=== PATIENT | male | born 1935 | race Caucasian/White ===

== ENCOUNTER → 2018-02-14 | Outpatient (CLI) | payer MEDICARE ==
[~2018-02-14] MED LIST: AMLO5CAP PO; AMLO5TAB2 PO; ASPI325T PO; ATEN-100 PO; ATOR40TA16 PO; CHOL5000 PO; ECASA81 PO; EZET10 PO; FLUT50SP EACH NARE; LATA.005%O EACH EYE; LIPI20TA PO; METF500T PO; METO50TA PO; OMEP20TA93 PO; PRIL20TA2 PO; RANO500 PO; VITA100021 SL; ZETI10TA5 PO
[2018-02-14 11:25] LABS: HEMOGLOBIN 14.2 GM/DL (13.0-17.0); MEAN CELL VOLUME 99.5 FL (80.0-100.0); MEAN CORPUSCULAR HEMOGLOBIN 33.7 PG (27.0-34.0); MEAN CORPUSCULAR HGB CONC 33.9 % (32.0-36.0); MEAN PLATELET VOLUME 9.5 FL (7.0-11.0); PLATELET COUNT 169 TH/MM3 (150-450); RED BLOOD COUNT 4.22 MIL/MM3 (4.50-5.90); RED CELL DISTRIBUTION WIDTH 13.2 % (11.6-17.2)
[2018-02-14 11:29] LABS: INTERNATIONAL NORMALIZED RATIO 1.1 RATIO
[2018-02-14 11:48] LABS: BICARBONATE 28.9 MEQ/L (21.0-32.0); CALCIUM 9.3 MG/DL (8.5-10.1); CREATININE 0.81 MG/DL (0.60-1.30)
== END ==
LOC: CPRE 10:44
PROVIDERS: ATTEND Surgery
DX: Z01.812 Encounter for preprocedural laboratory examination (principal); I71.4 Abdominal aortic aneurysm, without rupture
CPT/HCPCS: 36415; 80048; 85027; 85610

== ENCOUNTER 2018-02-21 05:36 | Inpatient (IN) | payer MEDICARE ==
[2018-02-21] VITALS (11 sets, daily range): BP systolic 118–137; BP diastolic 65–80; PULSE 55–84; RESP 17–18; TEMP 97.6–98; O2SAT 96–97
[~2018-02-21] VITALS: Ht 177.8 cm; Wt 67.0 kg
[~2018-02-21 05:36] MED LIST changes: -AMLO5CAP PO; -ASPI325T PO; -ATEN-100 PO; -LIPI20TA PO; -PRIL20TA2 PO; -ZETI10TA5 PO
[2018-02-21] MEDS ORDERED: METOPROLOL TARTRATE 25 MG TAB PO PRN (06:30)
[2018-02-21] MEDS ORDERED: POVIDONE IODINE 5% (ANTISEPSIS KIT) 4 APPLICATIONS EACH NARE PRN (06:30)
[2018-02-21] MEDS ORDERED: CHLORHEXIDINE GLUCONATE 2 % 1 PACK (2 CLOTHS) TOPICAL PRN (06:30)
[2018-02-21] MEDS ORDERED: SODIUM CHLORID 0.9% 500 ML IV PRN (06:30)
[2018-02-21] MEDS ORDERED: LACTATED RINGER'S 1000 ML IV PRN (06:30)
[2018-02-21] MEDS ORDERED: PROTAMINE SULFATE 50 MG/5 ML VIAL ONE (06:54)
[2018-02-21] MEDS ORDERED: HEPARIN-NS/PF INJ 500 ML ONE (06:54)
[2018-02-21] MEDS ORDERED: HEPARIN SODIUM - IV 10,000 UNITS/10 ML VIAL ONE (06:54)
[2018-02-21] MEDS ORDERED: BUPIVACAINE HCL PF 0.5% 10 ML VIAL ONE (06:54)
[2018-02-21] MEDS ORDERED: VANCOMYCIN HCL 1000 MG VIAL ONE (06:54)
[2018-02-21] MEDS ORDERED: IOHEXOL 300 INJ 50 ML IV ONE (07:18)
--- NOTE | 2018-02-21 07:22 | PD.VS.PN ---
Pre-operative Note Pre-operative diagnosis: Infrarenal aortic HARESH Planned procedure: EVAR Interval History: Pt has been feeling well; no pain and no change in health that would preclude OR. Labs: Hct 42 plt 169 cr 0.8 INR 1.1 Blood: T&S Imaging: CTA reviewed Orders: NPO vanc 1g IV OCTOR Post-operative destination: PACU then CPCU Operative site marked: No (bilateral groin access) Consent: Informed consent has been obtained from Sarkis Oswald. I have explained the procedure in detail and discussed the risks, benefits, and potential complications. All questions have been answered. Patient contact information: ([place]) will be here at noon Kristopher Castañeda MD February 21, 2018 07:22
[2018-02-21] MEDS ORDERED: fentaNYL CITRATE 250 MCG/5 ML AMP ONE (07:27)
[2018-02-21] MEDS: LACTATED RINGER'S 1000 ML INJ 1,000 ML IV SCH (09:17)
--- NOTE | 2018-02-21 09:17 | HHI.PR ---
cc: Kristopher Castañeda MD; Oscar Edmond MD Immediate Post Op Note Procedure Date: February 21, 2018 Pre Op Diagnosis: Penetrating infrarenal aortic ulcer Post Op Diagnosis: Penetrating infrarenal aortic ulcer Surgeon: Kristopher Castañeda Chief Warden(s): Duane Rollins Procedure: 1. EVAR 2. R SAND DIGGER Perclose (17F) 3. L SAND DIGGER Angioseal (6F) Findings: successful deployment of endograft and exclusion of ulceration Complications: none Specimen(s) removed: none Estimated blood loss: 75mL Anesthesia: General Drains: None Fluids: 1000mL IVF Urinary Output (mLs): 100 Patient to: PACU Patient Condition: Good Implant/Devices: SEE IMPLANT LOG (if applicable) Date/Time of Procedure: SEE SURGICAL CARE RECORD Kristopher Castañeda MD February 21, 2018 09:17
[2018-02-21] MEDS ORDERED: MAGNESIUM HYDROXIDE SUSP 30 ML CUP PO PRN (09:30)
[2018-02-21] MEDS ORDERED: SENNOSIDES 8.6 MG TAB PO PRN (09:30)
[2018-02-21] MEDS ORDERED: HYDROmorphone HCL 2 MG TAB PO PRN (09:30)
[2018-02-21] MEDS ORDERED: BISACODYL 10 MG SUPP RECTAL PRN (09:30)
[2018-02-21] MEDS ORDERED: LACTULOSE SYRUP 20 GM/30 ML CUP PO PRN (09:30)
[2018-02-21] MEDS ORDERED: DO NOT ADM ANY ANTICOAGULANT DRUGS PRN (09:32)
[2018-02-21] MEDS ORDERED: GLUCAGON 1 MG/ML VIAL OTHER PRN (11:45)
[2018-02-21] MEDS ORDERED: DEXTROSE 50% IN WATER 50 ML VIAL(D50) IV PUSH PRN (11:45)
[2018-02-21] MEDS ORDERED: LIDOCAINE HCL 1% PF 5 ML SYRINGE OTHER ONE (12:00)
[2018-02-21] MEDS ORDERED: ONDANSETRON HCL 4 MG/2 ML VIAL IV ONE (12:00)
[2018-02-21] MEDS ORDERED: PROPOFOL 200 MG/20 ML AMP IV ONE (12:00)
[2018-02-21] MEDS ORDERED: PHENYLEPH/NS 1000 MCG/10 ML SYR IV ONE (12:00)
[2018-02-21] MEDS ORDERED: DEXAMETHASONE SOD PHOS 4 MG/ML VIAL IV ONE (12:00)
[2018-02-21] MEDS ORDERED: GLYCOPYRROLATE 1 MG/5 ML SYRINGE IV PUSH ONE (12:00)
[2018-02-21] MEDS: INSULIN NovoLIN REGULAR SUPPLEMENTAL SCALE SQ SCH ×3 (12:00→21:00)
[2018-02-21] MEDS ORDERED: NEOSTIGMINE 5 MG/5 ML SYRINGE IV PUSH ONE (12:00)
[2018-02-21] MEDS ORDERED: ROCURONIUM INJ 50 MG/5 ML SYRINGE IV PUSH ONE (12:00)
[2018-02-21] MEDS ORDERED: IOHEXOL 300 MG/ML 100 ML BTL (for Rad CT) IVCONTRAST ONE (12:00)
[2018-02-21] MEDS ORDERED: metFORMIN HCL 500 MG TAB PO SCH (18:00)
[2018-02-21] MEDS ORDERED: ATORVASTATIN 40 MG TAB PO SCH (21:00)
[2018-02-21] MEDS: CHOLECALCIFEROL (VIT D3) 5000 UNIT CAP PO SCH (21:00)
[2018-02-21] MEDS ORDERED: LATANOPROST 0.005% OPHT SOLN 2.5 ML BTL EACH EYE SCH (21:00)
[2018-02-21] MEDS: FAMOTIDINE 20 MG TAB PO SCH (21:00)
--- NOTE | 2018-02-21 21:54 | MP ---
cc: Kristopher Castañeda MD, Robert J MD Swady, DATE OF OPERATION: 02/21/2018 PREOPERATIVE DIAGNOSIS: Infrarenal penetrating aortic ulcer. POSTOPERATIVE DIAGNOSIS: Infrarenal penetrating aortic ulcer. PROCEDURES: 1. Endovascular aortic exclusion. 2. Right common femoral artery Perclose (17-Scottish). 3. Left common femoral artery Angio-Seal (6-Scottish) ATTENDING SURGEON: Kristopher Castañeda MD. SURGEON: Kristopher Snow MD ANESTHESIA: General. INDICATIONS: Mr. Oswald is an 82-year-old gentleman who has an infrarenal penetrating aortic ulcer. After a thorough discussion was had with the patient about the risks and benefits, he was offered elective endovascular repair. DESCRIPTION OF PROCEDURE: Informed consent was obtained from the patient, he was taken to the operating room and laid supine on the operating table. An appropriate timeout was taken to ensure the patient's identity, operative site and planned procedure. A gram of vancomycin was initiated prior to skin incision. Will be discontinued after a single preoperative dose. Vancomycin was chosen because of the patient's PENICILLIN ALLERGY. Everyone in the room agreed with timeout and we proceeded. He was prepped from his nipples to the knees. A 21-gauge micropuncture needle was used to access both common femoral arteries. This was exchanged using Seldinger technique for a micropuncture sheath through which a 6-Scottish sheath was placed in both common femoral arteries on the right hand side. The 6-Scottish sheath was removed and 2 Perclose Pro Emmett sutures were inserted and tagged but not tied down. This will be used later. An 8-Scottish sheath was introduced on the right hand side. The patient was systemically heparinized and throughout the remainder of the case the ACT was kept greater than 250. Storq wire was advanced to the proximal descending thoracic aorta and the snare catheter was placed up the left hand side and on the right hand side a catheter was placed and the Storq was exchanged for a Lunderquist. The catheter and 8-Scottish sheath were removed. Beti dilator was used to dilate up the skin and subcutaneous tract and arteriotomy and the main device sheath, which was a 17-Scottish sheath, was placed through the right common femoral arteriotomy. The device was inserted through the sheath. The device was an Endologix 22 x 70/16 x 30 device. It was advanced up to the aorta and the contralateral limb wire was then advanced, and it was snared from the left hand side and pulled down. By pulling down, we confirmed there was no wire wrap and the device was seated on the aortic bifurcation. The device was deployed without difficulty and a pigtail catheter was placed up the left hand side to the middle of the device and interval angiography was performed to locate the renal arteries. The delivery system was removed and the proximal stent, which was a 2.5 x 75, was then introduced and inserted and deployed immediately caudal to the renal arteries. The overlap was sufficient and a Coda balloon was used to balloon the proximal and distal end as well as the gap junction. The completion angiogram showed excellent result with successful exclusion of the aneurysm sac and maintenance of perfusion of both limbs. There were palpable pulses in the left hand/foot and in the right groin. The wire catheter and sheath were removed. Perclose were tied down. Hemostasis was achieved in the groin. Left groin was closed with Angio-Seal. There were no complications. I was present and scrubbed and performed the entire procedure. MD SYDNEY Lozada/ , 08:47 PM , 09:53 PM
[2018-02-21] MEDS: DOCUSATE SODIUM 50 MG/SENNA 8.6 MG TAB PO SCH (22:03)
[2018-02-21] MEDS: METOPROLOL TARTRATE 50 MG TAB PO SCH (22:03)
[2018-02-21] MEDS: RANOLAZINE 500 MG EXTENDED RELEASE TAB PO SCH (22:04)
[2018-02-22] VITALS (12 sets, daily range): BP systolic 134–141; BP diastolic 68–70; PULSE 52–84; RESP 16–19; TEMP 97.7–97.9; O2SAT 94–99
[2018-02-22 04:25] LABS: HEMATOCRIT 34.9 % (39.0-51.0); HEMOGLOBIN 12.1 GM/DL (13.0-17.0); MEAN CELL VOLUME 98.1 FL (80.0-100.0); MEAN CORPUSCULAR HGB CONC 34.6 % (32.0-36.0); MEAN PLATELET VOLUME 9.9 FL (7.0-11.0); PLATELET COUNT 151 TH/MM3 (150-450); RED BLOOD COUNT 3.56 MIL/MM3 (4.50-5.90); WHITE BLOOD COUNT 9.3 TH/MM3 (4.0-11.0)
[2018-02-22 04:46] LABS: BICARBONATE 25.2 MEQ/L (21.0-32.0); CALCIUM 8.5 MG/DL (8.5-10.1); CREATININE 0.65 MG/DL (0.60-1.30)
[2018-02-22] MEDS: INSULIN NovoLIN REGULAR SUPPLEMENTAL SCALE SQ SCH (07:13)
[2018-02-22] MEDS ORDERED: PERC5TAB12 PO (07:33)
--- NOTE | 2018-02-22 07:40 | PD.VS.PN ---
Subjective POD #: 1 Procedure(s): EVAR Subjective/Hospital Course looks great this morning. had urinary retention over night but pt has history of self-cathing at home no abdominal or back pain. groins ok Objective Vitals/I&O Date Time Temp Pulse Resp B/P (MAP) Pulse Ox O2 Delivery O2 Flow Rate FiO2 02/22/18 06:14 68 02/22/18 05:20 59 02/22/18 04:29 57 02/22/18 03:18 60 02/22/18 03:18 97.9 72 19 141/70 (93) 94 02/22/18 02:00 61 02/22/18 01:28 57 02/22/18 00:10 54 02/21/18 23:30 70 02/21/18 23:30 98.0 84 17 131/80 (97) 96 02/21/18 22:14 78 02/21/18 21:30 80 02/21/18 20:00 66 02/21/18 19:30 61 02/21/18 19:30 97.7 59 18 137/65 (89) 97 02/21/18 18:09 55 02/21/18 17:09 80 02/21/18 16:00 66 02/21/18 15:08 97.6 73 18 118/72 (87) 96 02/21/18 15:08 66 02/21/18 14:16 75 02/21/18 13:20 69 02/21/18 11:45 97.3 58 20 118/55 (76) 98 Nasal Cannula 2 02/21/18 11:30 58 20 118/55 (76) 98 Nasal Cannula 2 02/21/18 10:30 56 20 130/63 (85) 98 Nasal Cannula 2 Arterial Line 02/21/18 10:15 54 20 128/61 (83) 98 Nasal Cannula 2 Arterial Line 02/21/18 10:00 55 20 132/64 (86) 99 Nasal Cannula 2 Arterial Line 02/21/18 09:45 60 20 122/58 (79) 98 Nasal Cannula 2 134/56 (82) 02/21/18 09:33 96.0 64 20 141/64 (89) 99 134/55 (81) 02/22/18 02/22/18 02/22/18 07:00 15:00 23:00 Intake Total 480 ml Output Total 950 ml Balance -470 ml Exam: no abdominal tenderness B groin access sites ok Pulses: palpable femoral pulses bilaterally Laboratory Laboratory Tests Test 02/22/18 03:42 02/22/18 03:43 Blood Urea Nitrogen 16 Creatinine 0.65 Random Glucose 124 Calcium Level 8.5 Sodium Level 139 Potassium Level 3.9 Chloride Level 105 Carbon Dioxide Level 25.2 Anion Gap 9 Estimat Glomerular Filtration Rate 118 White Blood Count 9.3 Red Blood Count 3.56 Hemoglobin 12.1 Hematocrit 34.9 Mean Corpuscular Volume 98.1 Mean Corpuscular Hemoglobin 34.0 Mean Corpuscular Hemoglobin Concent 34.6 Red Cell Distribution Width 13.0 Platelet Count 151 Mean Platelet Volume 9.9 Assessment and Plan Plan POD#1 s/p EVAR for infrarenal HARESH Looks great plan d/c today; he will self-cath at home per his routine. f/u 1m with CTA A/P Discharge Planning today Kristopher Castañeda MD Feb 22, 2018 07:39
--- NOTE | 2018-02-22 08:07 | PD.VS.DC ---
Discharge Summary Admission Date: February 21, 2018 at 05:36 Discharge Date: Feb 22, 2018 Admission Diagnosis: (1) H/O endovascular stent graft for abdominal aortic aneurysm Discharge Diagnosis: (1) Penetrating ulcer of aorta ICD Codes: I71.9 - Aortic aneurysm of unspecified site, without rupture Brief History from admission 82/M w/ a hx of an Infrarenal aortic HARESH Procedure(s): EVAR Significant Findings R/L groin s/nt w/o hematoma or swelling Pt w/o abdominal/back pain Pt CTA RRR Abdomen s/nt Laboratory Tests Test 02/22/18 03:42 02/22/18 03:43 Random Glucose 124 MG/DL (74-106) Red Blood Count 3.56 MIL/MM3 (4.50-5.90) Hemoglobin 12.1 GM/DL (13.0-17.0) Hematocrit 34.9 % (39.0-51.0) Hospital Course: 82/M w/ a hx of an Infrarenal aortic penetrating infrarenal aortic ulcer Pt S/P EVAR POD 1 Pt w/o c/o abdominal/back pain Successful EVAR Pt noted to have urinary retention, HX of, Pt reported he self cath's Pt clear for D/C Arranged out pt f/u in 1M with a surveillance CTA A/P Allergies Coded Allergies Type Severity Reaction Last Updated Verified penicillin G Allergy Severe Rash 02/21/18 No 02/20/18 02/20/18 02/21/18 02/21/18 02/22/18 02/22/18 06:00 18:00 06:00 18:00 06:00 18:00 Intake Total 1810 ml 480 ml Output Total 835 ml 950 ml Balance 975 ml -470 ml Intake Oral 600 ml 480 ml IV Total 210 ml Other 1000 ml Output Urine Total 760 ml 950 ml Estimated Blood Loss 75 ml Bladder Scan Volume Amount 100 ml 798 ml # Bowel Movements 0 0 Laboratory Tests Test 02/22/18 03:42 02/22/18 03:43 Blood Urea Nitrogen 16 MG/DL Creatinine 0.65 MG/DL Random Glucose 124 MG/DL Calcium Level 8.5 MG/DL Sodium Level 139 MEQ/L Potassium Level 3.9 MEQ/L Chloride Level 105 MEQ/L Carbon Dioxide Level 25.2 MEQ/L Anion Gap 9 MEQ/L Estimat Glomerular Filtration Rate 118 ML/MIN White Blood Count 9.3 TH/MM3 Red Blood Count 3.56 MIL/MM3 Hemoglobin 12.1 GM/DL Hematocrit 34.9 % Mean Corpuscular Volume 98.1 FL Mean Corpuscular Hemoglobin 34.0 PG Mean Corpuscular Hemoglobin Concent 34.6 % Red Cell Distribution Width 13.0 % Platelet Count 151 TH/MM3 Mean Platelet Volume 9.9 FL Orders Procedure Category Date Status Time Type And Screen BBK 02/21/18 Complete 06:22 Lactated Ringer's MED 02/21/18 Complete 1000 Ml Inj (Lr 1000 M 06:30 Sodium Chlorid 0.9% MED 02/21/18 Complete 500 Ml Inj (Ns 500 M 06:30 Metoprolol Tartrate MED 02/21/18 In Process (Lopressor) 06:30 Povidone Iod 5% MED 02/21/18 In Process Antisepsis Kit 06:30 Chlorhexidine 2% MED 02/21/18 In Process Cloth (Chlorhexidine 06:30 Protamine Sulfate Inj MED 02/21/18 Complete (Protamine Sulfate 06:54 Heparin Inj (Heparin MED 02/21/18 Complete Inj) 06:54 Bupivacaine Pf 0.5% MED 02/21/18 Complete Inj (Marcaine Pf 0.5 06:54 Vancomycin Inj MED 02/21/18 Complete (Vancomycin Inj) 06:54 Heparin-Ns/Pf Inj MED 02/21/18 Complete (Heparin-Ns/Pf Inj) 06:54 Iohexol 300 Inj MED 02/21/18 Complete (Omnipaque 300 Inj) 07:18 Fentanyl Inj MED 02/21/18 Complete (Fentanyl Inj) 07:27 Am Admit Pre Op Care [facility] 02/21/18 Complete Endovascular Cath CATH 02/21/18 Complete Urinary Catheter DANNY 02/21/18 Complete Management 08:36 Remove Urinary DANNY 02/21/18 In Process Catheter 15:00 ^ Other Nursing Orders DANNY 02/21/18 In Process 09:17 Admit To Inpatient ADMITTING 02/21/18 Transmitted Code Status CODE 02/21/18 Transmitted 09:17 Vital Signs (Adult) DANNY 02/21/18 Complete 09:17 Glassware Selector / DANNY 02/21/18 In Process Telemetry 09:17 Activity Oob Ad Marlen DANNY 02/22/18 In Process 06:00 Activity Bed Rest DANNY 02/21/18 In Process 09:17 Precautions DANNY 02/21/18 In Process 09:17 Diet Heart Healthy DIET 02/21/18 Transmitted Breakfast Basic Metabolic Panel LAB 02/22/18 Complete (Bmp) 06:00 Cbc No Diff, Includes LAB 02/22/18 Complete Plts 06:00 Lactated Ringer's MED 02/21/18 In Process 1000 Ml Inj (Lr 1000 M 09:17 Aspirin Chew (Aspirin MED 02/22/18 In Process Chew) 09:00 Famotidine (Pepcid) MED 02/21/18 In Process 21:00 Oxycodone (Roxicodone) MED 02/21/18 In Process 09:30 Hydromorphone MED 02/21/18 In Process (Dilaudid) 09:30 Scd Bilateral/Knee DANNY 02/21/18 In Process High 09:17 Docusate Sodium-Senna MED 02/21/18 In Process (Lisa-Colace) 21:00 Magnesium Hydroxide MED 02/21/18 In Process Liq (Milk Of Magnesi 09:30 Sennosides (Senokot) MED 02/21/18 In Process 09:30 Bisacodyl Supp MED 02/21/18 In Process (Dulcolax Supp) 09:30 Lactulose Liq MED 02/21/18 In Process (Lactulose Liq) 09:30 Inpatient ADMITTING 02/21/18 Transmitted Certification Amlodipine (Norvasc) MED 02/22/18 In Process 09:00 Atorvastatin (Lipitor) MED 02/21/18 In Process 21:00 Cholecalciferol MED 02/21/18 In Process (Vitamin D3) 21:00 Ezetimibe (Zetia) MED 02/22/18 In Process 09:00 Latanoprost 0.005% MED 02/21/18 In Process Opth Soln (Xalatan 0. 21:00 Metformin (Glucophage) MED 02/21/18 In Process 18:00 Metoprolol Tartrate MED 02/21/18 In Process (Lopressor) 21:00 Ranolazine Sr (Ranexa) MED 02/21/18 In Process 21:00 Pantoprazole MED 02/22/18 In Process (Protonix) 09:00 Enoxaparin Inj MED 02/22/18 In Process (Lovenox Inj) 08:30 Bedside Glucose [facility] 02/21/18 In Process 11:32 Blood Glucose Goal [facility] 02/21/18 In Process (Criteria) 11:32 Hypoglycemia 70 Mg/Dl [facility] 02/21/18 In Process Or < 11:[address]: Other [facility] 02/21/18 In Process 11:32 Dextrose 50% In [place] MED 02/21/18 In Process (Vial) Inj (D50w (Vi 11:45 Glucagon Inj MED 02/21/18 In Process (Glucagon Inj) 11:45 Insulin Human Reg MED 02/21/18 In Process Supp Scale (Novolin R 12:00 Nursing Information MED 02/21/18 In Process (Misc Nursing Inform 09:32 Class Iv Pacu Ea 30 [facility] 02/21/18 Complete MIN General/Pacu [facility] 02/21/18 Complete Post Anesthesia Oxygen [facility] 02/21/18 Complete Yamilex Hugger Machine [facility] 02/21/18 Complete Family Notification [facility] 02/21/18 In Process 16:12 Consult Primary Care CONS 02/21/18 Transmitted Physician (Hub Use Only)Inp Phy CONS 02/21/18 Transmitted Cons/Ref Attending Discharge DISCHARGE 02/22/18 Transmitted Order Vital Signs Date Time Temp Pulse Resp B/P (MAP) Pulse Ox O2 Delivery O2 Flow Rate FiO2 02/22/18 06:14 68 02/22/18 05:20 59 02/22/18 04:29 57 02/22/18 03:18 60 02/22/18 03:18 97.9 72 19 141/70 (93) 94 02/22/18 02:00 61 02/22/18 01:28 57 02/22/18 00:10 54 02/21/18 23:30 70 02/21/18 23:30 98.0 84 17 131/80 (97) 96 02/21/18 22:14 78 02/21/18 21:30 80 02/21/18 20:00 66 02/21/18 19:30 61 02/21/18 19:30 97.7 59 18 137/65 (89) 97 02/21/18 18:09 55 02/21/18 17:09 80 02/21/18 16:00 66 02/21/18 15:08 97.6 73 18 118/72 (87) 96 02/21/18 15:08 66 02/21/18 14:16 75 02/21/18 13:20 69 02/21/18 11:45 97.3 58 20 118/55 (76) 98 Nasal Cannula 2 02/21/18 11:30 58 20 118/55 (76) 98 Nasal Cannula 2 02/21/18 10:30 56 20 130/63 (85) 98 Nasal Cannula 2 Arterial Line 02/21/18 10:15 54 20 128/61 (83) 98 Nasal Cannula 2 Arterial Line 02/21/18 10:00 55 20 132/64 (86) 99 Nasal Cannula 2 Arterial Line 02/21/18 09:45 60 20 122/58 (79) 98 Nasal Cannula 2 134/56 (82) 02/21/18 09:33 96.0 64 20 141/64 (89) 99 134/55 (81) 02/21/18 06:39 98.1 59 18 136/77 (96) 98 Discharge Condition: Good Discharge Disposition: Discharge Home Discharge Instructions: DIET You may resume your diabetic diet MEDICATIONS You may resume your daily home medications HOLD METFORMIN until tomorrow am You were prescribed a narcotic pain medication that may cause constipation- Take with an over the counter stool softener You were prescribed a narcotic pain medication that may cause drowsiness- No driving while taking this medication ACTIVITY Activity as tolerated WOUND CARE Leave your groin incisions open to air Call to report an increase in swelling, pain, redness or drainage Any questions or concerns: Call [facility] [phone] Barbra Weir Feb 22, 2018 08:07
[2018-02-22] MEDS: FAMOTIDINE 20 MG TAB PO SCH (08:16)
[2018-02-22] MEDS: CHOLECALCIFEROL (VIT D3) 5000 UNIT CAP PO SCH (08:16)
[2018-02-22] MEDS: RANOLAZINE 500 MG EXTENDED RELEASE TAB PO SCH (08:16)
[2018-02-22] MEDS: DOCUSATE SODIUM 50 MG/SENNA 8.6 MG TAB PO SCH (08:16)
[2018-02-22] MEDS: METOPROLOL TARTRATE 50 MG TAB PO SCH (08:17)
[2018-02-22] MEDS ORDERED: ENOXAPARIN SODIUM 40 MG/0.4 ML SYRINGE SQ SCH (08:30)
[2018-02-22] MEDS ORDERED: PANTOPRAZOLE SOD 20 MG DELAYED RELEASE TAB PO SCH (09:00)
[2018-02-22] MEDS ORDERED: ASPIRIN 81 MG CHEW TAB PO SCH (09:00)
[2018-02-22] MEDS ORDERED: EZETIMIBE 10 MG TAB PO SCH (09:00)
[2018-02-22] MEDS ORDERED: amLODIPine BESYLATE 5 MG TAB PO SCH (09:00)
[2018-02-22] MEDS: LACTATED RINGER'S 1000 ML INJ 1,000 ML IV SCH (09:06)
== END 2018-02-22 11:00 | disposition home or self-care (01) | DRG 269 ==
LOC: HSDI 05:36 → HCPC 12:00
PROVIDERS: ADMIT Surgery; ATTEND Surgery
PROC: 04V03D6 (ICD-10-PCS; principal; 2018-02-21 07:43)
PROC: 0T9B70Z Drainage of Bladder with Drainage Device, Via Natural or Artificial Opening (ICD-10-PCS; 2018-02-22)
DX: I71.4 Abdominal aortic aneurysm, without rupture (principal); E11.9 Type 2 diabetes mellitus without complications; Z95.1 Presence of aortocoronary bypass graft; I10 Essential (primary) hypertension; R33.9 Retention of urine, unspecified; I25.10 Atherosclerotic heart disease of native coronary artery without angina pectoris; K21.9 Gastro-esophageal reflux disease without esophagitis; H40.9 Unspecified glaucoma; M19.90 Unspecified osteoarthritis, unspecified site; R41.3 Other amnesia; F17.210 Nicotine dependence, cigarettes, uncomplicated; Z88.0 Allergy status to penicillin; I25.2 Old myocardial infarction; Z79.84 Long term (current) use of oral hypoglycemic drugs; Z79.82 Long term (current) use of aspirin; Z89.511 Acquired absence of right leg below knee
CPT/HCPCS: 80048; 82948; 85027; 86850; 86900; 86901; C1725; C1769; J1100; J1644; J1650; J2370; J2405; J2710; J2720; J3010; J3370; J7120; Q9967